=== PATIENT | male | born 1950 | race Caucasian/White ===

== ENCOUNTER → 2021-12-16 13:30 | Outpatient (CLI) | payer MEDICARE, OTHER, SELFPAY ==
--- NOTE | 2021-12-16 13:39 | MR_ITS ---
FINAL REPORT CLINICAL HISTORY: CERVICALGIA. BURNING SENSATION DOWN RIGHT ARM. NO RECENT INJURY OR TRAUMA. LIMITED ROM WITH RIGHT ARM PAIN. FINDINGS: Multiplanar MR imaging of the cervical spine was performed without contrast. Motion on many of the images decreases exam sensitivity. On the sagittal T2-weighted images, disc degeneration is seen throughout. There is endplate change at several levels. There is no evidence of fracture. The vertebral alignment is normal. There is increased T2 signal within the cord at C4-5 likely due to cord edema. The cervicomedullary junction is normal. C2-3: There is no significant canal stenosis or neural foraminal narrowing. C3-4: There are uncovertebral osteophytes with moderate right and mild left neural foraminal narrowing. C4-5: There is a disc osteophyte complex. A central disc protrusion indents the thecal sac. There is severe bilateral neural foraminal narrowing. There is mild central canal stenosis with an AP thecal sac diameter of 7 mm. C5-6: There is an annular bulge with mild bilateral neural foraminal narrowing. C6-7: There is a disc osteophyte complex with moderate right and severe left neural foraminal narrowing. C7-T1: There is no significant canal stenosis or neural foraminal narrowing. IMPRESSION: Increased T2 signal in the cord at C4-C5 likely represents cord edema. Multilevel degenerative disc disease with areas of neural foraminal narrowing and central canal stenosis. Central disc protrusion at C4-C5 indents the thecal sac. Reviewed, Interpreted and Dictated by Josiah Youngblood III, MD Transcribed by Alphonse Tinoco Authenticated and [facility]
== END ==
PROVIDERS: PCP Internal Medicine; Visit Provider Internal Medicine
DX: M54.2 Cervicalgia (principal); M62.81 Muscle weakness (generalized)
CPT/HCPCS: 72141; 76376